=== PATIENT | female | born 1940 | race Caucasian/White ===

== ENCOUNTER 2018-11-07 06:18 | Inpatient (IN) | payer MEDICARE, MEDICAID ==
[2018-11-07 06:28] VITALS: BMI 21.2
[2018-11-07 06:42] LABS: BASO # 0.1 K/uL (0.0-0.2); BASO % 0.5 % (0.0-2.0); EOS # 0.2 K/uL (0.0-0.7); EOS % 1.3 % (0.0-4.0); HEMOGLOBIN 13.6 g/dL (11.0-16.0); LYMPH # 5.5 K/uL (1.0-4.3); LYMPH % 47.9 % (20.0-40.0); MEAN CELL VOLUME 93.9 fL (81.0-99.0); MEAN CORPUSCULAR HEMOGLOBIN 29.2 pg (27.0-31.0); MEAN CORPUSCULAR HGB CONC 31.1 g/dL (33.0-37.0); MEAN PLATELET VOLUME 10.1 fL (7.2-11.7); MONO # 0.5 K/uL (0.0-0.8); MONO % 4.5 % (0.0-10.0); NEUT # 5.2 K/uL (1.8-7.0); NEUT % 45.8 % (50.0-75.0); NRBC % 0.1 % (0.0-2.0); RBC 4.66 Mil/uL (3.80-5.20); RED CELL DISTRIBUTION WIDTH 14.2 % (11.5-14.5); WHITE BLOOD COUNT 11.4 K/uL (4.8-10.8)
--- NOTE | 2018-11-07 06:42 | C.PDOC ---
Time Seen by Provider: 11/07/18 06:39 Chief Complaint (Nursing): Cardiac Arrest History Per: EMS, Family Reason For Code Blue: Full Arrest Circumstances: Brought To ED By EMS Arrest Witnessed By: Family CPR Initiated Prior To MD Arrival?: Yes Down-Time Before ACLS: Unknown Treatment Initiated Prior To MD Arrival: Yes: CPR, Intubation, IVF, ACLS Medication Initiation, IV Access Medications Given Prior To MD Arrival: Yes: Epinephrine - Initial Findings Mentation: Unresponsive Pulse: Strong Rhythm: Sinus Rhythm Past Medical History Reviewed: Historical Data, Nursing Documentation, Vital Signs Vital Signs: Last Vital Signs Temp Pulse 99 H 11/07/18 06:23 Resp 24 11/07/18 06:23 BP 221/108 H 11/07/18 06:23 Pulse Ox Primary Care Provider: Non [facility] Provider, - Medical History PMH: HTN Denies: Chronic Kidney Disease Family History: States: No Known Family Hx - Social History Hx Alcohol Use: No Hx Substance Use: No Review Of Systems Review Of Systems: ROS cannot be obtained secondary to pt's inabilty to answer questions. Physical Exam - Physical Exam Appears: In Acute Distress Skin: Warm, Dry Head: Normacephalic Eye(s): bilateral: Other (fixed, dilated) Oral Mucosa: Moist Neck: Supple Chest: Symmetrical Cardiovascular: Rhythm Regular Respiratory: Rales, Rhonchi, No Wheezing Gastrointestinal/Abdominal: Soft, No Tenderness, No Distention Back: Normal Inspection Extremity: No Pedal Edema Extremity: Left: Other (left tibial IO), Bilateral: Atraumatic DTR: Ankle (R): 0, Ankle (L): 0 Neurological/Psych: No Response To Commands, Other Gait: Unable To Assess ED Course And Treatment - Laboratory Results Result Diagrams: 11/07/18 06:37 11/07/18 06:37 ECG: Interpreted By Me, Viewed By Me ECG Rhythm: Sinus Rhythm (90), ST/T Changes (anterolateral MT) O2 Sat by Pulse Oximetry: 100 Pulse Ox Interpretation: Normal - Radiology CXR: Interpreted by Me, Viewed By Me CXR Interpretation: Yes: Cardiomegaly, Other (acute pulm edema). No: Infiltrates, Fracture Progress Note: 6:26 AM sent ekg to dr valentine. 6;[address] valentine said no code heart due to pt's neurological condition., Unresponsive . Disposition Counseled Patient/Family Regarding: Studies Performed, Diagnosis - Disposition Disposition Time: 07:15 Condition: CRITICAL Forms: [facility] (Vincentian) - Clinical Impression Clinical Impression: Cardiac arrest Critical Care Time - Critical Care Note Total Time (in mins): 30 Documented critical care: time excludes all time spent performing seperately billable procedures. Physician Patient Turnover Patient Signed Over To: Bridgett Kang Handoff Comments: pending labs, ct head and admission
[2018-11-07 06:47] LABS: PROTHROMBIN TIME 11.4 SECONDS (9.7-12.2)
[2018-11-07] MEDS ORDERED: Nitroglycerin 50mg in D5W 50 MG/250 ML BOTTLE IV ONE ×2 (06:48→07:03)
[2018-11-07 06:56] LABS: ALB/GLOB RATIO 1.1 (1.0-2.1); ALBUMIN 3.6 g/dL (3.5-5.0); CALCIUM 8.3 mg/dl (8.6-10.4)
[2018-11-07 07:09] LABS: TROPONIN I 0.259 ng/mL (0.00-0.120)
[2018-11-07 07:10] LABS: CK-MB 3.96 ng/mL (0.0-3.38)
--- NOTE | 2018-11-07 07:52 | CT ---
Date of service: 11/07/2018 PROCEDURE: CT HEAD WITHOUT CONTRAST. HISTORY: cardiac arrest COMPARISON: None available. TECHNIQUE: Axial computed tomography images were obtained through the head/brain without intravenous contrast. Radiation dose: Total exam DLP = 953.63 mGy-cm. This CT exam was performed using one or more of the following dose reduction techniques: Automated exposure control, adjustment of the mA and/or kV according to patient size, and/or use of iterative reconstruction technique. FINDINGS: HEMORRHAGE: No intracranial hemorrhage. BRAIN: No mass effect or gross edema seen. There is marked generalized cerebral atrophy and prominence of the extra-axial CSF spaces. This is especially pronounced over the posterior parietal locations. Patchy bilateral deep white matter hypodensities are appreciated.-this is asymmetrically prominent in the right temporal lobe. Here no gross mass effect or face made of sulci seen. These findings may represent chronic microvascular ischemic changes. Precise chronicity unknown-no comparison is. VENTRICLES: Unremarkable. No hydrocephalus. CALVARIUM: Unremarkable. PARANASAL SINUSES: Minimal ethmoidal sinus mucosal thickening.. No significant inflammatory changes. MASTOID AIR CELLS: Unremarkable as visualized. No inflammatory changes. OTHER FINDINGS: Atherosclerotic vascular calcifications vertebrobasilar and supraclinoid internal carotid arteries. IMPRESSION: No intracranial hemorrhage or gross mass effect. Marked cerebral atrophy as referenced above. Patchy bilateral mostly deep white matter hypodensities asymmetrically prominent-right temporal lobe-in this age group-microvascular ischemic changes are favored. Precise chronicity unknown. Subacute and/or chronic changes favored no marked mass effect or associated hemorrhage. If further evaluation is needed, MRI of the brain would be more sensitive. Other findings as above. Comments although the study has a note referencing sent to [facility]-at the time of this in interpretation there is no preliminary report from [facility] available to me. 11/07/2018 at 7:48 a.m.
[2018-11-07] MEDS ORDERED: Eptifibatide 20 mg/10mL Inj IVP ONE (08:02)
--- NOTE | 2018-11-07 08:07 | PCM.ANESI ---
Anesthesia Emergent Intubation - Diagnosis Working Diagnosis:: sp asystolic cardiac arrest in field, STEMI, Respiratory f ailure - Consult Reason for Consult:: Reported Difficult intubation in field, LMA in place, ETT required - Intubation Attempts Previous Number of Intubation Attempts:: 0 (unknown number of attempts in field) - Pre-Intubation Vital Signs Blood Pressure: 195/91 Heart Rate: 104 Respiratory Rate: 18 O2 Sat: 91 FIO2: 1 (lma in situ) Oxygen Delivery Method: Ambu-Bag Level Of Consciousness: Drowsy, Lethargic, Restless, Unable to follow directions Intubation Meds Given: Etomidate (10 mg) - Airway Management Oropharyngeal Area Suctioned: No (not much to suction when oropharynx visualized) PreOxygenation: 1 Inhalation: No Rapid Sequence: Yes Cricoid Pressure: Yes Possible Aspiration: No - Method of Intubation Intubation Method: Oral ETT ETT Size: 7.0 Lipline@: 20cm Easy: Yes (somewhat anterior) Atramatic: Yes (ett visualized passing between cords) - Intubation Devices [place] Scope Used: Yes (glide 3) - Placement Confirmation Breath Sounds Present & Equal Bilaterally: Yes Gurgling Sounds Not Audible at Epigastrum: Yes Positive EtCO2: Yes Portable CXR: Yes (recommended) Recommendations: Ventilator, Chest X Ray, ABG - Post-Intubation Vital Signs Blood Pressure: 104/62 Heart Rate: 85 Respiratory Rate: 16 O2 Sat: 100 FIO2: 1
[2018-11-07] MEDS ORDERED: Eptifibatide 0.75 mg/ml 75 MG/100 ML BAG IV SCH (08:15)
[2018-11-07 09:11] LABS: ABG ALLEN TEST POS; ARTERIAL BLOOD GAS HCO3 16.7 mmol/L (21-28); ARTERIAL BLOOD GAS O2 SAT 97.5 % (95-98); ARTERIAL BLOOD GAS PCO2 46 mm/Hg (35-45); ARTERIAL BLOOD GAS PH 7.19 (7.35-7.45); ARTERIAL BLOOD GAS PO2 90 mm/Hg (80-100)
--- NOTE | 2018-11-07 09:33 | RAD ---
Date of service: 11/07/2018 HISTORY: cardiac arrest bed 10 COMPARISON: No prior. TECHNIQUE: 1 view obtained. FINDINGS: LUNGS: Extensive bilateral diffuse pulmonary opacity. Differential diagnosis includes pulmonary edema, bilateral pneumonia or ARDS. PLEURA: No significant pleural effusion identified, no pneumothorax apparent. CARDIOVASCULAR: No aortic atherosclerotic calcification present. Normal cardiac size. No pulmonary vascular congestion. OSSEOUS STRUCTURES: No significant abnormalities. VISUALIZED UPPER ABDOMEN: Normal. OTHER FINDINGS: None. IMPRESSION: Diffuse bilateral pulmonary opacity. Nonspecific. See above.
--- NOTE | 2018-11-07 09:33 | RAD ---
Date of service: 11/07/2018 HISTORY: portable chest x ray COMPARISON: 11/07/2018 TECHNIQUE: 1 view obtained. FINDINGS: LUNGS: Extensive bilateral perihilar opacity essentially unchanged. Concerning for pulmonary edema. Rule out bilateral pneumonia. PLEURA: No significant pleural effusion identified, no pneumothorax apparent. CARDIOVASCULAR: There is atherosclerotic calcification of the thoracic aorta. Normal heart size. Congestive change noted. Endotracheal tube noted with its tip approximately 3.9 cm above the tracheal amisha. OSSEOUS STRUCTURES: No significant abnormalities. VISUALIZED UPPER ABDOMEN: Normal. OTHER FINDINGS: None. IMPRESSION: Persistent extensive bilateral perihilar opacity. Possible pulmonary edema. Rule out bilateral pneumonia. ET tube appropriately positioned.
[2018-11-07] MEDS ORDERED: Iodixanol 320 MG/ML 200 ML BOTTLE IV ONE (09:35)
[2018-11-07] MEDS ORDERED: Lidocaine 2% MPF (5 ml) Inj ONE (09:40)
[2018-11-07 12:13] VITALS: BP 135/80; PULSE 86; RESP 24; TEMP 92.9; O2SAT 97
--- NOTE | 2018-11-07 12:26 | CP.PCM.CON ---
<PuneetestebantanmayTommy - Last Filed: 11/07/18 12:44> History of Present Illness - History of Present Illness History of Present Illness: PGY-1 Critical Care Consult for Dr. Arias Reason for consult: STEMI, pt intubated Patient is an 78 year old female with past medical history of HTN brought in by EMS s/p cardiac arrest. Patient was found by daughter not feeling well, complaining of L sided chest pain with radiation to scapula, vomiting 2x and then becoming unresponsive. Patient was received by [facility], given epi x 2 on the field after going from afib to asystole, then PEA. LMA placed on field due to difficulty intubating, ETT placed upon arrival in ED. 12 pt ROS unattainable due to condition. CXR demonstrating cardiomegaly, acute pulmonary edema. Elevated troponin, elevated BNP. EKG demonstrating ST elevation in anterolateral leads. Patient taken to cardiac catheter builder, [facility] called. Report given to [facility] [place] NURSE RECEPTIONIST Ronit. Patient transferred to [facility], Dr. Dom Bueno notified of pt's transfer. Review of Systems - Review of Systems Systems not reviewed;Unavailable: Intubated Past Patient History - Past Social History Smoking Status: Never Smoked - CARDIAC Hx Hypertension: Yes - PULMONARY Hx Respiratory Disorders: No - NEUROLOGICAL Hx Neurological Disorder: No - HEENT Hx HEENT Problems: No - RENAL Hx Chronic Kidney Disease: No - ENDOCRINE/METABOLIC Hx Endocrine Disorders: No - HEMATOLOGICAL/ONCOLOGICAL Hx Blood Disorders: No - INTEGUMENTARY Hx Dermatological Problems: No - MUSCULOSKELETAL/RHEUMATOLOGICAL Hx Falls: Yes - GASTROINTESTINAL Hx Gastrointestinal Disorders: No - GENITOURINARY/GYNECOLOGICAL Hx Genitourinary Disorders: No - PSYCHIATRIC Hx Substance Use: No - SURGICAL HISTORY Hx Surgeries: No - ANESTHESIA Hx Anesthesia: No Meds Allergies/Adverse Reactions: Allergies Allergy/AdvReac Type Severity Reaction Status Date / Time No Known Allergies Allergy Verified 11/07/18 06:31 - Medications Medications: Current Medications Aspirin (Aspirin Supp) 300 mg [place] DAILY [facility] Last Admin: 11/07/18 08:13 Dose: 300 mg Nitroglycerin/Dextrose (Nitroglycerin 50 Mg/250 Ml D5w) 50 mg in 250 mls @ 1.5 mls/hr IV .Q24H ONE Stop: 11/08/18 06:47 Last Admin: 11/07/18 07:15 Dose: 1.5 mls/hr Eptifibatide (Integrilin) 75 mg in 100 mls @ 8.709 mls/hr IV .[id number] WAYLON Last Admin: 11/07/18 09:40 Dose: 8.709 mls/hr Physical Exam - ENT Exam Additional comments: intubated - Respiratory Exam Additional comments: on mechanical vent - Cardiovascular Exam Cardiovascular Exam: Tachycardia, +S1, +S2 - Extremities Exam Extremities exam: Positive for: normal capillary refill, normal inspection, pedal pulses present - Skin Skin Exam: Dry, Intact, Normal Color, Warm Results - Vital Signs Recent Vital Signs: Last Vital Signs Temp 92.9 F L 11/07/18 11:30 Pulse 86 11/07/18 11:30 Resp 24 11/07/18 11:30 BP 135/80 11/07/18 11:34 Pulse Ox 97 11/07/18 11:30 - Labs Result Diagrams: 11/07/18 06:37 11/07/18 06:37 Labs: Laboratory Results - last 24 hr 11/07/18 11/07/18 11/07/18 06:28 06:37 06:37 WBC 11.4 H RBC 4.66 Hgb 13.6 Hct 43.7 MCV 93.9 MCH 29.2 MCHC 31.1 L RDW 14.2 Plt Count 171 MPV 10.1 Neut % (Auto) 45.8 L Lymph % (Auto) 47.9 H [place] % (Auto) 4.5 Eos % (Auto) 1.3 Baso % (Auto) 0.5 Neut # (Auto) 5.2 Lymph # (Auto) 5.5 H [place] # (Auto) 0.5 Eos # (Auto) 0.2 Baso # (Auto) 0.1 PT 11.4 INR 1.0 APTT 54.0 H Puncture Site pCO2 pO2 HCO3 ABG pH ABG Total CO2 ABG O2 Saturation ABG Base Excess Hamilton Test ABG Potassium A-a O2 Difference Respiratory Index Glucose Lactate Vent Mode Mechanical Rate FiO2 Tidal Volume PEEP Crit Value Called To Crit Value Called By Crit Value Read Back Blood Gas Notified Time Sodium Potassium Chloride Carbon Dioxide Anion Gap BUN Creatinine Est GFR ( Amer) Est GFR (Non-Af Amer) POC Glucose (mg/dL) 383 H Random Glucose Calcium Phosphorus Magnesium Total Bilirubin AST ALT Alkaline Phosphatase Total Creatine Kinase CK-MB (Mass) Troponin I NT-Pro-B Natriuret Pep Total Protein Albumin Globulin Albumin/Globulin Ratio Arterial Blood Potassium Blood Type Antibody Screen 11/07/18 11/07/18 11/07/18 06:37 07:18 09:03 WBC RBC Hgb Hct MCV MCH MCHC RDW Plt Count MPV Neut % (Auto) Lymph % (Auto) [place] % (Auto) Eos % (Auto) Baso % (Auto) Neut # (Auto) Lymph # (Auto) [place] # (Auto) Eos # (Auto) Baso # (Auto) PT INR APTT Puncture Site Rr pCO2 46 H pO2 90 HCO3 16.7 L ABG pH 7.19 L* ABG Total CO2 19.0 L ABG O2 Saturation 97.5 ABG Base Excess -10.4 L Hamilton Test Pos ABG Potassium 3.6 A-a O2 Difference 566.0 Respiratory Index 6.3 Glucose 323 H Lactate 4.3 H* Vent Mode Prvc Mechanical Rate 20 FiO2 100.0 Tidal Volume 500 PEEP 5 Crit Value Called To Dr arias Crit Value Called By Monique campos stereotype caster Crit Value Read Back Y Blood Gas Notified Time 911 Sodium 135 134.0 Potassium 3.8 Chloride 99 98.0 Carbon Dioxide 16 L Anion Gap 24 H BUN 14 Creatinine 1.1 Est GFR ( Amer) 58 Est GFR (Non-Af Amer) 48 POC Glucose (mg/dL) Random Glucose 341 H Calcium 8.3 L Phosphorus 8.0 H Magnesium 2.3 Total Bilirubin 0.2 AST 93 H ALT 71 H Alkaline Phosphatase 103 Total Creatine Kinase 121 CK-MB (Mass) 3.96 H Troponin I 0.2590 H* NT-Pro-B Natriuret Pep 1470 H Total Protein 6.8 Albumin 3.6 Globulin 3.2 Albumin/Globulin Ratio 1.1 Arterial Blood Potassium 3.6 Blood Type B POSITIVE Antibody Screen Negative <Tyler Arias - Last Filed: 11/07/18 18:45> Results - Vital Signs Recent Vital Signs: Last Vital Signs Temp 92.9 F L 11/07/18 11:30 Pulse 86 11/07/18 11:30 Resp 24 11/07/18 11:30 BP 135/80 11/07/18 11:34 Pulse Ox 97 11/07/18 11:30 - Labs Result Diagrams: 11/07/18 06:37 11/07/18 06:37 Labs: Laboratory Results - last 24 hr 11/07/18 11/07/18 11/07/18 06:28 06:37 06:37 WBC 11.4 H RBC 4.66 Hgb 13.6 Hct 43.7 MCV 93.9 MCH 29.2 MCHC 31.1 L RDW 14.2 Plt Count 171 MPV 10.1 Neut % (Auto) 45.8 L Lymph % (Auto) 47.9 H [place] % (Auto) 4.5 Eos % (Auto) 1.3 Baso % (Auto) 0.5 Neut # (Auto) 5.2 Lymph # (Auto) 5.5 H [place] # (Auto) 0.5 Eos # (Auto) 0.2 Baso # (Auto) 0.1 PT 11.4 INR 1.0 APTT 54.0 H Puncture Site pCO2 pO2 HCO3 ABG pH ABG Total CO2 ABG O2 Saturation ABG Base Excess Hamilton Test ABG Potassium A-a O2 Difference Respiratory Index Glucose Lactate Vent Mode Mechanical Rate FiO2 Tidal Volume PEEP Crit Value Called To Crit Value Called By Crit Value Read Back Blood Gas Notified Time Sodium Potassium Chloride Carbon Dioxide Anion Gap BUN Creatinine Est GFR ( Amer) Est GFR (Non-Af Amer) POC Glucose (mg/dL) 383 H Random Glucose Calcium Phosphorus Magnesium Total Bilirubin AST ALT Alkaline Phosphatase Total Creatine Kinase CK-MB (Mass) Troponin I NT-Pro-B Natriuret Pep Total Protein Albumin Globulin Albumin/Globulin Ratio Arterial Blood Potassium Blood Type Antibody Screen 11/07/18 11/07/18 11/07/18 06:37 07:18 09:03 WBC RBC Hgb Hct MCV MCH MCHC RDW Plt Count MPV Neut % (Auto) Lymph % (Auto) [place] % (Auto) Eos % (Auto) Baso % (Auto) Neut # (Auto) Lymph # (Auto) [place] # (Auto) Eos # (Auto) Baso # (Auto) PT INR APTT Puncture Site Rr pCO2 46 H pO2 90 HCO3 16.7 L ABG pH 7.19 L* ABG Total CO2 19.0 L ABG O2 Saturation 97.5 ABG Base Excess -10.4 L Hamilton Test Pos ABG Potassium 3.6 A-a O2 Difference 566.0 Respiratory Index 6.3 Glucose 323 H Lactate 4.3 H* Vent Mode Prvc Mechanical Rate 20 FiO2 100.0 Tidal Volume 500 PEEP 5 Crit Value Called To Dr arias Crit Value Called By Monique campos stereotype caster Crit Value Read Back Y Blood Gas Notified Time 911 Sodium 135 134.0 Potassium 3.8 Chloride 99 98.0 Carbon Dioxide 16 L Anion Gap 24 H BUN 14 Creatinine 1.1 Est GFR ( Amer) 58 Est GFR (Non-Af Amer) 48 POC Glucose (mg/dL) Random Glucose 341 H Calcium 8.3 L Phosphorus 8.0 H Magnesium 2.3 Total Bilirubin 0.2 AST 93 H ALT 71 H Alkaline Phosphatase 103 Total Creatine Kinase 121 CK-MB (Mass) 3.96 H Troponin I 0.2590 H* NT-Pro-B Natriuret Pep 1470 H Total Protein 6.8 Albumin 3.6 Globulin 3.2 Albumin/Globulin Ratio 1.1 Arterial Blood Potassium 3.6 Blood Type B POSITIVE Antibody Screen Negative Attending/Attestation - Attestation I have personally seen and examined this patient.: Yes I have fully participated in the care of the patient.: Yes I have reviewed all pertinent clinical information: Yes Notes (Text): 11/07/18 18:43 Patient seen and examined Total critical care time 60 minutes 78-year-old female status post cardiac arrest and resuscitation with return of spontaneous circulation. On examination in the emergency room patient found to have gag and corneal reflexes. Patient started on Integrilin drip, aspirin and Plavix. Case discussed with cardiology" heart initiated. Status post cardiac cath and stent placement in LAD and circumflex. Patient to be transferred to another facility for therapeutic hypothermia. Report given to market risk analyst at [facility]
--- NOTE | 2018-11-07 19:44 | CP.PCM.HP ---
Present on Admission - Present on Admission Any Indicators Present on Admission: No Past Patient History - Past Social History Smoking Status: Never Smoked - CARDIAC Hx Hypertension: Yes - PULMONARY Hx Respiratory Disorders: No - NEUROLOGICAL Hx Neurological Disorder: No - HEENT Hx HEENT Problems: No - RENAL Hx Chronic Kidney Disease: No - ENDOCRINE/METABOLIC Hx Endocrine Disorders: No - HEMATOLOGICAL/ONCOLOGICAL Hx Blood Disorders: No - INTEGUMENTARY Hx Dermatological Problems: No - MUSCULOSKELETAL/RHEUMATOLOGICAL Hx Falls: Yes - GASTROINTESTINAL Hx Gastrointestinal Disorders: No - GENITOURINARY/GYNECOLOGICAL Hx Genitourinary Disorders: No - PSYCHIATRIC Hx Substance Use: No - SURGICAL HISTORY Hx Surgeries: No - ANESTHESIA Hx Anesthesia: No Meds Allergies/Adverse Reactions: Allergies Allergy/AdvReac Type Severity Reaction Status Date / Time No Known Allergies Allergy Verified 11/07/18 06:31 Results - Vital Signs Recent Vital Signs: Last Vital Signs Temp 92.9 F L 11/07/18 11:30 Pulse 86 11/07/18 11:30 Resp 24 11/07/18 11:30 BP 135/80 11/07/18 11:34 Pulse Ox 97 11/07/18 11:30 - Labs Result Diagrams: 11/07/18 06:37 11/07/18 06:37 Labs: Laboratory Results - last 24 hr 11/07/18 11/07/18 11/07/18 06:28 06:37 06:37 WBC 11.4 H RBC 4.66 Hgb 13.6 Hct 43.7 MCV 93.9 MCH 29.2 MCHC 31.1 L RDW 14.2 Plt Count 171 MPV 10.1 Neut % (Auto) 45.8 L Lymph % (Auto) 47.9 H [place] % (Auto) 4.5 Eos % (Auto) 1.3 Baso % (Auto) 0.5 Neut # (Auto) 5.2 Lymph # (Auto) 5.5 H [place] # (Auto) 0.5 Eos # (Auto) 0.2 Baso # (Auto) 0.1 PT 11.4 INR 1.0 APTT 54.0 H Puncture Site pCO2 pO2 HCO3 ABG pH ABG Total CO2 ABG O2 Saturation ABG Base Excess Hamilton Test ABG Potassium A-a O2 Difference Respiratory Index Glucose Lactate Vent Mode Mechanical Rate FiO2 Tidal Volume PEEP Crit Value Called To Crit Value Called By Crit Value Read Back Blood Gas Notified Time Sodium Potassium Chloride Carbon Dioxide Anion Gap BUN Creatinine Est GFR ( Amer) Est GFR (Non-Af Amer) POC Glucose (mg/dL) 383 H Random Glucose Calcium Phosphorus Magnesium Total Bilirubin AST ALT Alkaline Phosphatase Total Creatine Kinase CK-MB (Mass) Troponin I NT-Pro-B Natriuret Pep Total Protein Albumin Globulin Albumin/Globulin Ratio Arterial Blood Potassium Blood Type Antibody Screen 11/07/18 11/07/18 11/07/18 06:37 07:18 09:03 WBC RBC Hgb Hct MCV MCH MCHC RDW Plt Count MPV Neut % (Auto) Lymph % (Auto) [place] % (Auto) Eos % (Auto) Baso % (Auto) Neut # (Auto) Lymph # (Auto) [place] # (Auto) Eos # (Auto) Baso # (Auto) PT INR APTT Puncture Site Rr pCO2 46 H pO2 90 HCO3 16.7 L ABG pH 7.19 L* ABG Total CO2 19.0 L ABG O2 Saturation 97.5 ABG Base Excess -10.4 L Hamilton Test Pos ABG Potassium 3.6 A-a O2 Difference 566.0 Respiratory Index 6.3 Glucose 323 H Lactate 4.3 H* Vent Mode Prvc Mechanical Rate 20 FiO2 100.0 Tidal Volume 500 PEEP 5 Crit Value Called To Dr dorman Crit Value Called By Monique campos travel manager Crit Value Read Back Y Blood Gas Notified Time 911 Sodium 135 134.0 Potassium 3.8 Chloride 99 98.0 Carbon Dioxide 16 L Anion Gap 24 H BUN 14 Creatinine 1.1 Est GFR ( Amer) 58 Est GFR (Non-Af Amer) 48 POC Glucose (mg/dL) Random Glucose 341 H Calcium 8.3 L Phosphorus 8.0 H Magnesium 2.3 Total Bilirubin 0.2 AST 93 H ALT 71 H Alkaline Phosphatase 103 Total Creatine Kinase 121 CK-MB (Mass) 3.96 H Troponin I 0.2590 H* NT-Pro-B Natriuret Pep 1470 H Total Protein 6.8 Albumin 3.6 Globulin 3.2 Albumin/Globulin Ratio 1.1 Arterial Blood Potassium 3.6 Blood Type B POSITIVE Antibody Screen Negative
--- NOTE | 2018-11-09 01:06 | CARD ---
APPROVED REPORT Date of service: 11/07/2018 EKG Measurement Heart [id number] <Conclusion> Sinus rhythm with premature atrial complexes Moderate voltage criteria for LVH, may be normal variant ST elevation, consider anterolateral injury or acute infarct ACUTE MS / STEMI Abnormal ECG
--- NOTE | 2018-11-09 06:20 | CARDCATH ---
PROCEDURE DATE: 11/07/2018 CARDIAC CATHETERIZATION AND ANGIOPLASTY REPORT BRIEF CLINICAL HISTORY: The patient is an 78-year-old female with history of hypertension, cardiac arrest at home. The patient was intubated . The patient was then brought to the ER. The patient had CPR, resuscitated in the ER again and was later transported to the ICU. Later, the patient had EKG changes. The patient . PROCEDURE TECHNIQUE: After obtaining consent from the patient, the patient was brought to the cardiac catheterization lab and prepared for the procedure the patient was intubated. Right groin was used for access and after obtaining the access, a 6-Egyptian sheath was introduced into the right femoral artery, and access was completed without any complication. A 6-Egyptian 3.0 XBLAD catheter was used to engage the left main. A 6-Egyptian JR4 diagnostic catheter was used to visualize the right coronary artery system. A 6-Egyptian pigtail catheter was used to assess the left ventricular function and left ventricular end-diastolic pressure. FINDINGS: The patient has a small-sized left main with LAD 95%. RCA has medium sized % lesion. Left ventricular end-diastolic pressure is normal with anterior apical hypokinesis. After obtaining pictures, angioplasty . A guidewire was brought through the lesion, and the lesion was dilated with a 2.0 x 12 balloon. After assessing the length of the lesion and diameter of the vessel, a 2.25 x 20 SONNY deployed in the proximal portion of the vessel. . Since the patient has lateral ST elevation angioplasty and stenting of the balloon and with 0% stenosis as well. . CONCLUSION: The patient with triple-vessel disease, angioplasty and stenting of the circumferential and LAD. PLAN: The patient will be monitored in the ICU protocol. We are going to continue the Integrilin and also continue aspirin and dual antiplatelet therapy, lipid-lowering agent and . The patient is stable and with the family. Linda Jaime MD [facility] # [id number]
== END 2018-11-07 12:00 | disposition short-term general hospital (02) | DRG 246 ==
LOC: C.ER 06:18 → C.9E 07:39 → C.9I 08:05
PROVIDERS: ADMIT Internal Medicine; ATTEND Internal Medicine
PROC: 4A023N7 Measurement of Cardiac Sampling and Pressure, Left Heart, Percutaneous Approach (ICD-10-PCS; principal; 2018-11-07)
PROC: B2151ZZ Fluoroscopy of Left Heart using Low Osmolar Contrast (ICD-10-PCS; 2018-11-07)
PROC: B2111ZZ Fluoroscopy of Multiple Coronary Arteries using Low Osmolar Contrast (ICD-10-PCS; 2018-11-07)
PROC: 5A1935Z Respiratory Ventilation, Less than 24 Consecutive Hours (ICD-10-PCS; 2018-11-07)
PROC: 027135Z Dilation of Coronary Artery, Two Arteries with Two Drug-eluting Intraluminal Devices, Percutaneous Approach (ICD-10-PCS; 2018-11-07)
PROC: 0BH18EZ Insertion of Endotracheal Airway into Trachea, Via Natural or Artificial Opening Endoscopic (ICD-10-PCS; 2018-11-07)
PROC: 5A12012 Performance of Cardiac Output, Single, Manual (ICD-10-PCS; 2018-11-07)
DX: I21.09 ST elevation (STEMI) myocardial infarction involving other coronary artery of anterior wall (principal); I46.2 Cardiac arrest due to underlying cardiac condition; J96.90 Respiratory failure, unspecified, unspecified whether with hypoxia or hypercapnia; J81.0 Acute pulmonary edema; I11.9 Hypertensive heart disease without heart failure; I25.10 Atherosclerotic heart disease of native coronary artery without angina pectoris; I48.91 Unspecified atrial fibrillation